=== PATIENT | female | born 1950 | race Caucasian/White ===

== ENCOUNTER 2016-09-21 11:37 | Day surgery (SDC) | payer MEDICARE ==
--- NOTE | 2016-09-21 08:04 | HP ---
DATE OF SURGERY: 09/21/2016 HISTORY OF PRESENT ILLNESS: The patient is a 66 year-old last colonoscopy 11 or 12 years ago with no polyps. No bloody stools. No pain. No change in bowel movements. Family history of liver cancer, negative for colon cancer. She is in need of follow up screening colonoscopy. PAST MEDICAL HISTORY: Chronic obstructive pulmonary disease, arthritis, hypoglycemia. PAST SURGICAL HISTORY: Bilateral foot surgery in the past. MEDICATIONS: Montelukast, Atorvastatin, Nabumetone. ALLERGIES: LATEX. FAMILY HISTORY: Diabetes, hypertension. Breast cancer and liver cancer. SOCIAL HISTORY: One pack per day smoker. Denies alcohol abuse. REVIEW OF SYSTEMS: Twelve systems reviewed per admission assessment. No chest pain or palpitations other systems negative or noncontributory as above and per preadmission questionnaire. PHYSICAL EXAMINATION: GENERAL: No acute distress. HEENT: Sclerae nonicteric. NECK: No JVD. CHEST: Equal excursion, nonlabored breathing. CVS: Regular rate and rhythm. ABDOMEN: Soft. No peritoneal signs. EXTREMITIES: No significant edema. NEURO: Alert, moving extremities grossly symmetrically. No gross motor deficits noted. RECTAL: Deferred timed to endoscopy exam. IMPRESSION: Last colonoscopy 11 or 12 years ago. She is in need of follow up screening colonoscopy. I feel she is a candidate. Risks and benefits explained in detail including but not limited to bleeding or infection, risk of bowel injury or perforation possibly requiring open procedure, risk of incomplete exam possibly requiring barium enema, general risk of anesthesia or sedation, risk of nausea, vomiting or cramping as well as risk of bowel prep but not limited to. She understands and agrees to the planned procedure and will proceed with outpatient screening colonoscopy.
[2016-09-21] MEDS ORDERED: Sodium Chloride 0.9% 1000 ML 1,000 ML IV SCH (11:45)
== END 2016-09-21 12:15 | disposition home or self-care (01) ==
LOC: SDC 11:37
PROVIDERS: ATTEND Surgery
DX: Z12.11 Encounter for screening for malignant neoplasm of colon (principal); Z53.8 Procedure and treatment not carried out for other reasons

== ENCOUNTER 2016-10-26 09:05 | Day surgery (SDC) | payer MEDICARE ==
--- NOTE | 2016-10-26 08:42 | HP ---
DATE OF SURGERY: 10/26/2016 HISTORY OF PRESENT ILLNESS: The patient is a 67 year-old with last colonoscopy 11 or 12 years ago. No bloody stools. She does not recall having any polyps, any pain or change in bowel movements. Family history of liver cancer. Negative for colon cancer. She is in need of follow up screening colonoscopy. PAST MEDICAL HISTORY: Hyperlipidemia. PAST SURGICAL HISTORY: Bilateral foot surgery in 2014. Abdominal lesion excised in 2007 as well as colon scope in the past. MEDICATIONS: Montelukast, atorvastatin, nabumetone. ALLERGIES: NKDA. LATEX. FAMILY HISTORY: Diabetes, hypertension, cancer, breast and liver cancer. SOCIAL HISTORY: One pack per day smoker. Denies alcohol abuse. REVIEW OF SYSTEMS: Twelve systems reviewed per admission assessment. No chest pain or palpitations other systems negative or noncontributory as above and per preadmission questionnaire. PHYSICAL EXAMINATION: GENERAL: No acute distress. HEENT: Sclerae nonicteric. NECK: No JVD. CHEST: Equal excursion, nonlabored breathing. CVS: Regular rate and rhythm. ABDOMEN: Soft. No peritoneal signs. EXTREMITIES: No significant edema. NEURO: Alert, oriented, moving extremities symmetrically. No gross motor deficits noted. RECTAL: Deferred. IMPRESSION: Need for follow up screening colonoscopy. I feel she is a candidate. The last one was 11 or 12 years ago. Risks and benefits explained in detail including but not limited to bleeding or infection, small risk of bowel injury or perforation possibly requiring open procedure, small risk of missed or nondiagnosis or incomplete exam possibly requiring barium enema, other studies or procedures, general risk of anesthesia or sedation but not limited to. She understands and agrees to the planned procedure and will proceed with outpatient follow up screening colonoscopy.
[~2016-10-26 09:05] MED LIST: DIPRIVAN 200 MG/20 ML IV ONE; Ketamine HCl 50 MG/ML IJ ONE
[2016-10-26] MEDS ORDERED: Sodium Chloride 0.9% 1000 ML 1,000 ML IV SCH (09:30)
[2016-10-26] MEDS ORDERED: Lactated Ringers 1,000 ML IV ONE (11:04)
[2016-10-26 12:12] VITALS: O2SAT 98
--- NOTE | 2016-10-26 12:39 | OP ---
SURGERY DATE: 10/26/16 SURGERY TIME: 1100 PREOPERATIVE DIAGNOSIS: 1. NEED FOR FOLLOW-UP SCREENING COLONOSCOPY. LAST COLONOSCOPY 10 YEARS OR LONGER AGO. POSTOPERATIVE DIAGNOSIS: 1. SMALL RAISED LESION VS EARLY POLYP OR HYPERPLASTIC LESION RECTOSIGMOID AND RECTUM. 2. DIVERTICULOSIS. 3. SMALL INTERNAL/EXTERNAL HEMORRHOIDS. 4. SOMEWHAT POOR BOWEL PREP LIMITING EXAM IN THE RIGHT COLON AND LEFT COLON. PROCEDURE: 1. Colonoscopy to terminal ileum. 2. Retrograde ileoscopy. 3. Hot biopsy removal of small raised lesion rectosigmoid colon past 1. 4. Hot biopsy removal of small raised lesion vs hyperplastic lesion rectum X 2. SURGEON: Dr. Neo Gatica. ANESTHESIA: MAC. ESTIMATED BLOOD LOSS: Minimal. INDICATIONS: As noted above. Risks and benefits explained in detail, but not limited to. Consent was obtained. DESCRIPTION OF PROCEDURE AND FINDINGS: The patient was taken to the endoscopy room. MAC anesthesia introduced. After official time-out, no disagreement in planned procedure. She was incrementally sedated with MAC anesthesia. Digital rectal exam did not reveal any rectal masses. She did have some small internal/external hemorrhoids. Video colonoscope inserted and passed up through the tortuous sigmoid, descending, transverse colon, and ascending colon to the cecum. The appendiceal orifice was visualized. Prep overall was somewhat poor with several areas of liquid, semi-solid stool throughout the colon, both in the right colon and areas of the left colon. Did limit the exam for small lesions. This was suction irrigated as well as possible, but this material was thick enough that it did not come through the scope real well. The scope was able to be passed up the terminal ileum. Retrograde ileoscopy was performed and the terminal ileum was grossly unremarkable on retrograde ileoscopy. The scope was slowly, carefully withdrawn back over the next 15 minutes or so and there were no signs of any large polyps, masses, or obstructing lesions. She did have some mild diverticulosis in the left colon. She did have some small internal/external hemorrhoids. Otherwise, no signs of any large polyps, masses, or obstructing lesions. Again, the prep did limit the exam for small lesions. She was noted to have small raised lesion in the rectosigmoid X 1 and rectum X 2. Whether these are simple hyperplastic lesions vs early polyps, they were removed with hot biopsy forceps. Good hemostasis noted. Again, she had some small internal/external hemorrhoids. Scope was withdrawn. Patient tolerated the procedure well. There were no immediate complications. There was no family available to discuss any findings with out in the waiting area.
[2016-10-26 12:53] VITALS: BP 111/70; PULSE 68
== END 2016-10-26 12:40 | disposition home or self-care (01) ==
LOC: SDC 09:05
PROVIDERS: ATTEND Surgery
PROC: 0DJD8ZZ Inspection of Lower Intestinal Tract, Via Natural or Artificial Opening Endoscopic (ICD-10-PCS; principal; 2016-10-26)
PROC: 0DJD8ZZ Inspection of Lower Intestinal Tract, Via Natural or Artificial Opening Endoscopic (ICD-10-PCS; 2016-10-26)
PROC: 0DBP8ZX Excision of Rectum, Via Natural or Artificial Opening Endoscopic, Diagnostic (ICD-10-PCS; 2016-10-26)
PROC: 0DBN8ZX Excision of Sigmoid Colon, Via Natural or Artificial Opening Endoscopic, Diagnostic (ICD-10-PCS; 2016-10-26)
DX: Z12.11 Encounter for screening for malignant neoplasm of colon (principal); K63.9 Disease of intestine, unspecified; K57.90 Diverticulosis of intestine, part unspecified, without perforation or abscess without bleeding; E78.5 Hyperlipidemia, unspecified; Z80.0 Family history of malignant neoplasm of digestive organs
CPT/HCPCS: 00810; 36415; J2704

== ENCOUNTER 2024-04-19 15:46 | Day surgery (SDC) | payer MEDICARE ==
[2024-04-19] MEDS ORDERED: BUPIVACAINE 0.5% VIAL IJ ONE (15:47)
[2024-04-19] MEDS ORDERED: Depo-Medrol 40 MG/ML IM ONE (15:47)
[2024-04-19] MEDS ORDERED: LIDOCAINE HCL 1% AMPUL 5 ML IJ ONE (15:47)
--- NOTE | 2024-04-19 19:33 | XRAY ---
Indication: Bilateral greater trochanter bursa injection. Intraoperative fluoroscopy provided for 14 seconds. 2 digital spot image submitted for interpretation demonstrates needle tips lateral to left/right greater trochanters. Small amount of contrast injected for all needle tip placement. Correlate with intraoperative findings/report.
--- NOTE | 2024-04-19 19:35 | XRAY ---
14 seconds of fluoroscopy used in surgery for bilateral greater trochanteric bursa injections.
== END 2024-04-19 18:00 ==
LOC: SDC-PAIN 15:46
PROVIDERS: ATTEND Psychiatry & Neurology Pain Medicine
DX: M70.62 Trochanteric bursitis, left hip (principal); M70.61 Trochanteric bursitis, right hip
CPT/HCPCS: 20610; 73521; 77002; Q9966

== ENCOUNTER 2024-08-02 14:19 | Day surgery (SDC) | payer MEDICARE ==
[2024-08-02] MEDS ORDERED: Depo-Medrol 40 MG/ML IM ONE (14:20)
[2024-08-02] MEDS ORDERED: BUPIVACAINE 0.5% VIAL IJ ONE (14:20)
[2024-08-02] MEDS ORDERED: propofoL IV ONE (15:53)
--- NOTE | 2024-08-02 20:37 | XRAY ---
Indication: Bilateral greater trochanter bursa injection. Intraoperative fluoroscopy provided for 16 seconds. 2 digital spot image submitted for interpretation demonstrates needle tips projecting lateral to left/right greater trochanters. Small amount of contrast injected for needle tip placement. Correlate with intraoperative findings/report. Incidental incompletely visualized left hip arthroplasty
--- NOTE | 2024-08-02 20:49 | XRAY ---
16 seconds of fluoroscopy were used in surgery for bilateral greater trochanteric bursa injections.
== END 2024-08-02 16:42 | disposition home or self-care (01) ==
LOC: SDC-PAIN 14:19
PROVIDERS: ATTEND Psychiatry & Neurology Pain Medicine
DX: M70.62 Trochanteric bursitis, left hip (principal); M70.61 Trochanteric bursitis, right hip
CPT/HCPCS: 20610; 73521; 77002; J2704; Q9966